=== PATIENT | female | born 1965 | race Caucasian/White ===

== ENCOUNTER 2016-09-26 12:46 | Emergency (ER) | payer SELFPAY ==
[~2016-09-26] VITALS: Ht 162.6 cm; Wt 152.0 kg
[2016-09-26 13:18] VITALS: BP 146/70
[2016-09-26] MEDS ORDERED: LOSA50TA37 PO (13:21)
[2016-09-26] MEDS ORDERED: GABA-531 PO (13:21)
[2016-09-26] MEDS ORDERED: ATEN50TA PO (13:21)
== END 2016-09-26 16:39 | disposition left against medical advice (07) ==
LOC: EMS 12:51
DX: R10.9 Unspecified abdominal pain (principal); R11.0 Nausea; E66.9 Obesity, unspecified; I10 Essential (primary) hypertension; Z68.43 Body mass index [BMI] 50.0-59.9, adult
CPT/HCPCS: 99281